=== PATIENT | female | born 2000 | race Caucasian/White ===

== ENCOUNTER → 2020-02-11 12:12 | Outpatient (CLI) | payer OTHER, SELFPAY ==
[2016-01-28 14:02] VITALS: BMI 21.5
[2020-02-11 13:04] LABS: Vitamin D,25 Hydroxy 12.4 ng/mL
[2020-02-13 02:31] LABS: HPV Reflexed? NOT INDICATED
== END ==
LOC: WOBLAB 12:14
PROVIDERS: PCP Pediatrics; Visit Provider Obstetrics & Gynecology
DX: E55.9 Vitamin D deficiency, unspecified (principal); Z12.4 Encounter for screening for malignant neoplasm of cervix
CPT/HCPCS: 36415; 82306; 88175; G0145

== ENCOUNTER → 2020-08-29 15:09 | Outpatient (CLI) | payer OTHER, SELFPAY ==
[2020-08-29 16:08] LABS: Vitamin D,25 Hydroxy 36.2 ng/mL
== END ==
PROVIDERS: PCP Pediatrics; Visit Provider Obstetrics & Gynecology
DX: E55.9 Vitamin D deficiency, unspecified (principal)
CPT/HCPCS: 36415; 82306

== ENCOUNTER → 2023-03-28 | Outpatient (CLI) | payer OTHER, SELFPAY ==
[2023-03-31 19:12] LABS: HPV Reflexed? NOT INDICATED
== END | disposition home or self-care (01) ==
LOC: LABSPEC 16:34
PROVIDERS: PCP Pediatrics; Visit Provider Nurse Practitioner Women's Health
DX: Z12.4 Encounter for screening for malignant neoplasm of cervix (principal)
CPT/HCPCS: 88175; G0145